=== PATIENT | female | born 1955 | race Caucasian/White ===

== ENCOUNTER 2019-04-07 08:48 | Inpatient (IN) ==
[2019-04-07] MEDS ORDERED: PHENERGAN IV PRN (08:55)
[2019-04-07] MEDS ORDERED: SODIUM CHLORIDE 0.9% INJ SCH (09:00)
--- NOTE | 2019-04-07 10:55 | EKG Report ---
Test Performed on : 04/07/2019 10:51:09 AM Test Reason : chest pain Blood Pressure : / mmHG Vent. Rate : 093 BPM Atrial Rate : 093 BPM P-R Int : 166 ms QRS Dur : 080 ms QT Int : 364 ms P-R-T Axes : 032 022 019 degrees QTc Int : 452 ms Normal sinus rhythm. Nonspecific ST and T wave abnormality Abnormal ECG When compared with ECG of 25-FEB-2015 13:23, Criteria for Inferior infarct are no longer present T wave inversion no longer evident in Inferior leads Nonspecific T wave abnormality now evident in Anterior leads Nonspecific T wave abnormality has replaced inverted T waves in Lateral leads QT has shortened Confirmed by Steve NAVARRO, James Plunkett ([id number]) on 04/07/2019 5:58:36 PM
[2019-04-07] MEDS: NS 1,000 ML IV SCH (14:21)
[2019-04-07] MEDS: SOLU-MEDROL IV SCH ×2 (14:22→16:32)
[2019-04-07] MEDS: PROTONIX IV SCH (14:22)
[2019-04-07] MEDS: LEVAQUIN 500 MG/D5W 500 MG/100 ML IVPB IV SCH (14:22)
[2019-04-07] MEDS ORDERED: TORADOL IV ONE (21:39)
[2019-04-07 21:57] LABS: BILIRUBIN URINE NEGATIVE (NEGATIVE); BLOOD URINE NEGATIVE (NEGATIVE); COLOR YELLOW; GLUCOSE URINE >1000 mg/dL (NEGATIVE); KETONE URINE NEGATIVE (NEGATIVE); LEUKOCYTES URINE NEGATIVE (NEGATIVE); NITRITE URINE NEGATIVE (NEGATIVE); PH URINE 5.5; PROTEIN URINE NEGATIVE (NEGATIVE); SP GRAVITY URINE 1.026; TURBIDITY URINE CLEAR (CLEAR); URINE SOURCE CLEAN CATCH; UROBILINOGEN URINE NORMAL (NORMAL)
[2019-04-07 21:58] LABS: UR EPITHELIAL CELLS <10 /HPF (<10); URINE BACTERIA NEGATIVE /HPF; URINE RBC <10 /HPF (<10); URINE WBC <10 /HPF (<10)
--- NOTE | 2019-04-07 22:45 | HISTORY AND PHYSICAL ---
CHIEF COMPLAINT: Cough, shortness of breath, wheezing. HISTORY OF PRESENT ILLNESS: She is a 64-year-old white female came [facility], a patient of mine, yesterday was treated with URI symptoms and bronchitis, sent home. Came back with not able to breathe, a little bit hypoxic, wheezing, some atypical chest pains, and since she failed outpatient treatment, admitted to the hospital for acute asthmatic bronchitis. Chest x-ray stable, no infiltrates. She has stable left lower lobe granuloma. PAST MEDICAL HISTORY: Allergic rhinitis, type 2 diabetes, hyperlipidemia, hypertension, hypothyroid, osteoporosis. PAST SURGICAL HISTORY: Benign breast biopsy, appendectomy, hysterectomy, left heel spur removal, bilateral hip replacement. MEDICATIONS: Synthroid 75 mcg daily, simvastatin 20 mg daily, Tenormin 50 p.o. b.i.d., metformin 850 daily, amitriptyline 25 at bedtime, Flonase 1 spray in each nostril daily, aspirin, alendronate 70 mg every week, Lasix 20 p.o. b.i.d., glipizide 10 mg p.o. b.i.d., B12 1000 mcg daily, tramadol 50 p.o. b.i.d. ALLERGIES: Reported to penicillin. SOCIAL HISTORY: for 44 years, 2 children. Lives in [place]. No smoking. No alcohol. No drug abuse. FAMILY HISTORY: Father at the age of 84 with heart problems. Mom of skin cancer with melanoma. HEALTH MAINTENANCE: Flu vaccine April 2018. Pneumococcal-13 vaccine 2016. Mammography 05/31/2018. DEXA scan June 2017. Eye exam 2018 in [place]. Colonoscopy [address] Aguiar. The patient was given recently outpatient antibiotics. REVIEW OF SYSTEMS: HEENT: Sinus headache, postnasal drainage, cough. No ear pain. No sore throat. Neck: No neck pain. No goiter. No lymphadenopathy. Cardiopulmonary: No chest pain. Shortness of breath. No PND. No orthopnea. Gastrointestinal: No nausea, vomiting, abdominal pain. Genitourinary: No history of dysuria, hesitancy, frequency. No swelling of legs. No joint pain. Neurologic: No focal deficits. PHYSICAL EXAMINATION: VITAL SIGNS: Temperature is 98.7 degrees, pulse 79, blood pressure 134/59. HEENT: Atraumatic, normocephalic. Pupils equal, react to light. TMs are normal. Nose and throat within normal limits. NECK: Supple. No lymphadenopathy. No goiter. CHEST: Bilateral wheezing. HEART: Sounds are regular. ABDOMEN: Belly is soft, nontender. Good bowel sounds. EXTREMITIES: No peripheral edema, cyanosis. NEUROLOGIC: No obvious neurological deficits. INVESTIGATIONS: EKG: Normal sinus, nothing acute. Chest x-ray in my office, no infiltrate, a stable left lower lobe granuloma. Labs are pending. ASSESSMENT AND PLAN: 1. A 64-year-old white female admitted to the hospital with acute asthma exacerbation with allergic rhinitis. Plan is IV steroids, IV Levaquin, bronchodilators. 2. Gastrointestinal prophylaxis with IV Protonix. Continue IV fluids. 3. Follow up on the pending labs and reconcile home medications. cc: Jose Guadalupe Skaggs MD
[2019-04-08] MEDS: SOLU-MEDROL IV SCH ×2 (01:13→10:38)
[2019-04-08] MEDS: NS 1,000 ML IV SCH ×2 (03:50→16:38)
[2019-04-08] MEDS: HUMULIN R SUBQ SCH ×4 (06:49→22:02)
[2019-04-08 07:30] LABS: CK INDEX 4.2 (0.0-2.5); CK-MB 11.31 ng/mL (0.0-5.0)
--- NOTE | 2019-04-08 07:51 | EKG Report ---
Test Performed on : 04/08/2019 07:33:30 AM Test Reason : chest pain Blood Pressure : / mmHG Vent. Rate : 065 BPM Atrial Rate : 065 BPM P-R Int : 150 ms QRS Dur : 078 ms QT Int : 430 ms P-R-T Axes : 033 043 049 degrees QTc Int : 447 ms Normal sinus rhythm. Normal ECG When compared with ECG of 07-APR-2019 10:51, Nonspecific T wave abnormality no longer evident in Lateral leads Confirmed by Steve NAVARRO, James Plunkett ([id number]) on 04/08/2019 1:54:05 PM
[2019-04-08 08:28] LABS: MAGNESIUM 1.7 mg/dL (1.5-2.7); PHOSPHORUS 3.4 mg/dL (2.7-4.5)
[2019-04-08 08:43] LABS: HEMATOCRIT 32.1 % (37.0-47.0); HEMOGLOBIN 10.6 g/dL (12.0-16.0); IMM GRAN# 0.02 X1000 (0.0-0.04); IMM GRAN% 0.2 % (0.0-0.5); LYMPH# 0.81 X1000 (1.2-3.4); LYMPH% 6.9 % (20.5-51.1); MCH 30.5 PG (27-31); MCV 92.2 FL (81-99); MONO# 0.21 X1000 (0.11-0.59); MONO% 1.8 % (1.7-9.3); MPV 11.7 FL (7.4-10.4); NEUT# 10.64 X1000 (1.4-6.5); NEUT% 91.1 % (42.2-75.2); PLT 128 X1000 (130-400); RBC 3.48 XMIL (4.2-5.4); WBC 11.68 X1000 (4.8-10.8)
[2019-04-08 08:55] LABS: CALCIUM 8.2 mg/dL (8.8-10.2); CREATININE 1.4 mg/dL (0.5-0.9); HEMOGLOBIN A1C 7.8 % (4.8-6.0); POTASSIUM 4.9 mmol/L (3.5-5.1)
--- NOTE | 2019-04-08 08:59 | Diag Imaging Result Doc PS360 ---
EXAM: CHEST-2 VIEWS 04/08/2019 HISTORY: hypoxia TECHNIQUE: PA and lateral chest COMMENT: There is a partially calcified nodule present probably in the left lower lobe although it is not well seen on the lateral view. There is also apparent platelike atelectasis in the left lower lobe. This was not the case on 02/25/2015. IMPRESSION: Left lower lobe atelectasis. Electronically signed by Giorgi Rae 04/08/2019 8:56 AM
[2019-04-08 09:33] LABS: BANDS 2 % (0-1); LYMPHS 6 % (21-51); MONO 2 % (1-9); SEGS 90 % (42-75)
[2019-04-08] MEDS: LEVAQUIN 500 MG/D5W 500 MG/100 ML IVPB IV SCH (10:10)
[2019-04-08] MEDS: PROTONIX IV SCH (10:10)
[2019-04-08] MEDS: SYNTHROID PO SCH (10:12)
[2019-04-08] MEDS: GLUCOPHAGE PO SCH (10:12)
[2019-04-08] MEDS: TENORMIN PO SCH ×2 (10:13→21:59)
[2019-04-08] MEDS: MORPHINE IV PRN ×3 (11:02→23:46)
[2019-04-08] MEDS: ASPIRIN PO SCH (11:04)
[2019-04-08] MEDS: DUONEB (A & A) INH PRN ×2 (11:13→22:16)
--- NOTE | 2019-04-08 13:14 | ECHO REPORT ---
ORDER DATE: 04/08/2019 INDICATIONS: Embolism. FINDINGS: 1. The right atrium appears normal in size at 2.6 cm. 2. Mild tricuspid regurgitation. Somewhat insufficient data to estimate the RV systolic pressure. 3. Normal RV size and systolic function. 4. No significant pulmonic insufficiency. 5. Normal left atrial size. 6. No mitral valve prolapse. Mild and at sometimes moderate appearing mitral regurgitation. This is a somewhat difficult study with multiple jets of mitral regurgitation identified. There does not appear to be any significant degree of mitral stenosis. 7. Normal LV size with an end-diastolic dimension of 4.3 cm. No clear evidence of left ventricular hypertrophy. Normal LV systolic function with an estimated EF of 65% on all axis views. 8. Aortic valve opens well. It is trileaflet. The valve is sclerotic, but does not appear to be stenotic. There is no aortic insufficiency. 9. Aorta appears normal on visualized segments. 10. No pericardial effusion seen. cc: MD Jose Guadalupe Winston MD
[2019-04-08] MEDS ORDERED: LEXISCAN ONE (14:42)
[2019-04-08 17:41] LABS: CK INDEX 4.7 (0.0-2.5); CK-MB 21.17 ng/mL (0.0-5.0)
--- NOTE | 2019-04-08 18:04 | Diag Imaging Result Document ---
PROCEDURE NAME: MYOCARDIAL PERF SCAN, STR/REST - 04/08/2019 INDICATION FOR PROCEDURE: Chest pain. PROCEDURES PERFORMED: 1. Lexiscan stress number. 2. One-day stress rest myocardial perfusion imaging FINDINGS: LEXISCAN STRESS RESULTS.: 1. Baseline EKG shows sinus rhythm. 2. Lexiscan stress does not demonstrate any clear evidence of ischemic-related EKG changes or significant arrhythmias. PERFUSION IMAGING RESULTS: 1. No evidence of abnormal extracardiac uptake. 2. TID ratio is 1.27. On review of splash images, there is slight suggestion of transient ischemic dilatation. 3. Perfusion imaging demonstrates a moderate sized, pfic-xa-aeeribgf intensity, reversible defect located in the apical, septal apical and mid anterior septal. This defect is reversible, suggesting ischemia, likely in the LAD territory. 4. Normal ejection fraction of 88%. The end-diastolic volume is 65, end-systolic volume is 8. There is some evidence of a distal septal wall motion abnormality on stress and gating. cc: MD Della Winston PA
--- NOTE | 2019-04-08 20:39 | CARDIOLOGY PROGRESS NOTE ---
DATE: 04/08/2019 SUBJECTIVE: The patient continues without chest discomfort or shortness of breath. OBJECTIVE: Blood pressure 125/55, heart rate 73, oxygen saturation 99% on room air. Chest is clear to auscultation. Cardiac exam reveals a regular rate and rhythm without appreciable murmur or gallop. There is no evidence of peripheral edema. DIAGNOSTIC DATA: Lexiscan sestamibi study demonstrates medium-size reversible defect in the mid to apical anteroseptal region suggesting inducible myocardial ischemia in distribution of more distal part of the left anterior descending coronary. Normal left ventricular systolic function demonstrated. IMPRESSION: 1. Recurrent chest discomfort. Symptoms mixed in nature but not totally incompatible with angina. 2. Abnormal Lexiscan sestamibi study suggesting inducible myocardial ischemia in distribution of more distal part of left anterior descending coronary. 3. Type 2 diabetes mellitus. 4. Hyperlipidemia. 5. Hypertension. RECOMMENDATIONS: 1. Continue aspirin p.o. daily along with beta-jose cruz. 2. Check fasting lipids and consider more potent statin if indicated. 3. Given symptoms, coronary risk profile and abnormal Lexiscan sestamibi study, favor definitive evaluation with cardiac catheterization and selective coronary angiography. This was discussed with the patient, including potential hazards of procedure as well as potential need to transfer to [facility] should she need a coronary angioplasty/stent procedure. She very much is in agreement with pursuing the procedure here at [facility]. We will therefore keep the patient in the hospital over the weekend and arrange cardiac catheterization procedure for Thursday. cc: MD Jose Guadalupe Campoverde MD
--- NOTE | 2019-04-08 21:07 | CONSULTATION ---
DATE OF CONSULTATION: 04/08/2019 IMPRESSION: 1. Episodic chest discomfort with mixed features for possible myocardial ischemia. Overall, clinical presentation more atypical for myocardial ischemia. Troponin normal. CPK mildly elevated. Electrocardiogram normal. 2. Recent cough, possibly related to bronchitis. 3. Type 2 diabetes mellitus. 4. Hypertension. 5. Chronic back disorder. Patient previously on tramadol, which was stopped 2 weeks ago. RECOMMENDATIONS: 1. Lexiscan sestamibi study. 2. Echocardiography. 3. Further recommendations to follow. HISTORY: This 64-year-old white female, with past history of type 2 diabetes mellitus, hyperlipidemia, and hypertension, was admitted because of chest discomfort and cough, with features predominantly typical for myocardial ischemia. CPK was mildly elevated as was CPK and MB; however, troponin T was normal. She is not aware of any previous cardiac problems. She has a chronic back problem and relates that tramadol was stopped 2 weeks ago. She was also taken off amlodipine and Lasix at that time. She has had some recent cough and mild chest tightness. She has also had some pain in the center of the back. She was noted to have some wheezing and, for this reason, was admitted for further management for asthmatic bronchitis because she had already been treated for this as an outpatient. She relates somewhat positional in nature to her chest discomfort. Discomfort does not seem to be pleuritic. PAST MEDICAL HISTORY: 1. Type 2 diabetes mellitus. 2. Hyperlipidemia. 3. Hypertension. 4. Hypothyroidism. 5. Osteoporosis. 6. Allergic rhinitis. PAST SURGICAL HISTORY: Includes: 1. Breast biopsy, which proved benign. 2. Appendectomy. 3. Hysterectomy. 4. Removal left heel spur. 5. Bilateral hip replacement. ALLERGIES: She is allergic or intolerant to penicillin. MEDICATIONS PRIOR TO ADMISSION: As listed. SOCIAL HISTORY: She is . She has never smoked. She does not use alcohol. FAMILY HISTORY: Negative for premature coronary disease. REVIEW OF SYSTEMS: Pulmonary: Noncontributory beyond History of Present Illness. Gastrointestinal: Noncontributory beyond History of Present Illness. Constitutional: Noncontributory beyond History of Present Illness. Remainder of review of systems negative/noncontributory beyond History of Present Illness with 14 total systems reviewed. PHYSICAL EXAMINATION: General: This is an older white female in no distress. Vital Signs: Blood pressure 130/60. Heart rate 80 and regular. HEENT: Extraocular movements intact. Mucous membranes moist. Neck: Supple without jugular venous distention. There are no carotid bruits. Chest: Clear to auscultation bilaterally. Cardiac: Regular rate and rhythm without appreciable murmur or gallop. Abdomen: Soft. Bowel sounds are normal. Extremities: Without edema. Neurologic: Alert and fully oriented. Speech is fluent. She moves all 4 extremities equally well. Skin: Warm, dry. Psychiatric: Reveals her mood to be appropriate. PERTINENT DATA: A 12-lead EKG demonstrates sinus rhythm and is within normal limits. Laboratory data includes a sodium of 134, potassium 4.9, chloride 102, carbon dioxide 16, BUN 47, creatinine 1.4, glucose 177. CPK 272, CPK MB 11.3, CPK-MB index 4.2, troponin T less than 0.01. Pro-B natriuretic peptide level 2011. White blood cell count 11.68, hematocrit 32.1, hemoglobin 10.6, platelet count 128,000. Chest x-ray reports left lower lobe atelectasis, but no other abnormalities. cc: MD Jose Guadalupe Campoverde MD
[2019-04-08] MEDS: ZOCOR PO SCH (21:59)
[2019-04-08] MEDS: ELAVIL PO SCH (21:59)
--- NOTE | 2019-04-08 22:47 | PROGRESS NOTE ---
DATE: 04/08/2019 SUBJECTIVE: Since admission, patient complains of chest pain going to the back. EKG, nondiagnostic. CK-MB index, positive. Troponin was negative. Chest x-ray was stable. It looks like more cardiac to me. Repeat EKG, stable. Currently pain free. OBJECTIVE: Temperature is 98.2 degrees, pulse 73. Vitals are stable.HEENT: Within normal limits. Neck: Supple. Chest: Decreased wheezing. Heart sounds are regular. Belly is soft, nontender. No obvious neurological deficits. INVESTIGATIONS: CBC: White cell count 11, hematocrit 32, platelets 128,000. D-dimer is 0.56, which is normal adjusted for her age. Sodium 134, potassium 4.9, chloride 102, BUN 47, creatinine 1.4, glucose 357. A1c 7.8. CK-MB index positive. Troponin was negative. ProBNP was slightly high. Chest x-ray was stable. ASSESSMENT AND PLAN: 1. Asthmatic bronchitis, coughing. I would decrease IV steroids 40 mg daily. Continue beta 2 agonist and IV antibiotics. 2. Azotemia. Continue IV fluids. 3. Chest pain. Positive CK-MB index in light of risk factors. Continue aspirin, beta blockers, morphine for pain. Cardiology consult on-call and follow up on echocardiography. 4. Hyperlipidemia. On Zocor. 5. Chronic insomnia. On Elavil. 6. Diabetes. Worsening due to steroids. Continue on metformin and subcutaneous sliding scale with insulin coverage. The patient has been scheduled for a stress test. LEVEL OF DOCUMENTATION: 35 minutes. cc: Jose Guadalupe Skaggs MD
[2019-04-09] MEDS: NS 1,000 ML IV SCH ×2 (04:46→20:34)
[2019-04-09] MEDS: MORPHINE IV PRN ×3 (04:46→20:37)
[2019-04-09 05:27] LABS: BASO# 0.01 X1000 (0.0-0.2); BASO% 0.1 % (0.0-0.8); IMM GRAN# 0.06 X1000 (0.0-0.04); IMM GRAN% 0.5 % (0.0-0.5); LYMPH# 0.74 X1000 (1.2-3.4); LYMPH% 6.2 % (20.5-51.1); MCH 29.8 PG (27-31); MCHC 32.3 g/dL (33-37); MCV 92.3 FL (81-99); MONO# 0.47 X1000 (0.11-0.59); MPV 11.7 FL (7.4-10.4); NEUT# 10.59 X1000 (1.4-6.5); NEUT% 89.2 % (42.2-75.2); PLT 142 X1000 (130-400); RBC 3.36 XMIL (4.2-5.4); RDW 13.3 % (11.5-14.5); WBC 11.87 X1000 (4.8-10.8)
[2019-04-09 06:04] LABS: MAGNESIUM 1.7 mg/dL (1.5-2.7); PHOSPHORUS 3.7 mg/dL (2.7-4.5)
[2019-04-09 06:06] LABS: CREATININE 1.6 mg/dL (0.5-0.9); POTASSIUM 4.7 mmol/L (3.5-5.1)
[2019-04-09] MEDS: HUMULIN R SUBQ SCH ×4 (06:28→20:35)
[2019-04-09 07:03] LABS: CHOLESTEROL 128 mg/dL (0-200); HDL 44 mg/dL (45-65); LDL 55 mg/dL; TRIGLYCERIDES 143 mg/dL (35-135); VLDL 29 mg/dL
[2019-04-09 07:50] LABS: BANDS 2 % (0-1); LYMPHS 6 % (21-51); MONO 2 % (1-9); SEGS 90 % (42-75)
--- NOTE | 2019-04-09 08:43 | Diag Imaging Result Doc PS360 ---
EXAM: CHEST-2 VIEWS INDICATION: hypoxia TECHNIQUE: 2 views COMPARISON: 04/08/2019 FINDINGS: Inspiration is suboptimal. Lung volumes are slightly lower than the previous study. Subsegmental atelectasis at the left lung base is approximately stable. No new consolidation is identified. Cardiac silhouette is stable. IMPRESSION: Lower lung volumes but grossly stable chest, otherwise. Electronically signed by Rasta Malave 04/09/2019 8:41 AM
[2019-04-09] MEDS: TENORMIN PO SCH ×2 (09:26→20:35)
[2019-04-09] MEDS: ASPIRIN PO SCH (09:26)
[2019-04-09] MEDS: SYNTHROID PO SCH (09:26)
[2019-04-09] MEDS: SOLU-MEDROL IV SCH (09:27)
[2019-04-09] MEDS: PROTONIX IV SCH (09:28)
[2019-04-09] MEDS: LEVAQUIN 500 MG/D5W 500 MG/100 ML IVPB IV SCH (09:28)
[2019-04-09] MEDS: GLUCOPHAGE PO SCH (09:51)
[2019-04-09] MEDS ORDERED: MIRALAX PO PRN (10:41)
[2019-04-09] MEDS: DUONEB (A & A) INH PRN ×2 (10:54→16:26)
--- NOTE | 2019-04-09 11:45 | PROGRESS NOTE ---
DATE: 04/09/2019 SUBJECTIVE: Patient is stable. No chest pain. Mild nonproductive cough. OBJECTIVE: Afebrile, pulse 73, respirations 15, blood pressure 122/66, O2 saturation room air is 97%. CV: RRR without distinct murmur. Lungs clear. Abdomen soft active bowel sounds. Nontender. One bowel movement in the past few days. Extremities: No calf tenderness, cords or edema. Neuro: Cranial nerves are intact. No focal deficits. LABORATORY DATA: Sodium 141, potassium 4.7, chloride 108, CO2 of 16, BUN 49, creatinine 1.6, triglycerides 143, total cholesterol 128, ALDL 55, VLDL 29, HDL 44. White count 11.8, hemoglobin 10, platelets 142,000. Chest x-ray this morning reveals low lung volumes with grossly stable chest with some left lung subsegmental atelectasis. No new consolidation. ASSESSMENT: 1. Chest pain with abnormal nuclear stress testing. Schedule for cardiac cath in 2 days here at [facility]. 2. Bronchitis. 3. Azotemia. 4. Hyperlipidemia, stable on Zocor. 5. Type 2 diabetes mellitus. 6. Chronic insomnia. 7. Hypothyroidism. PLAN: Continue aspirin daily. Continue atenolol. She is on low-dose metformin and she is on steroids p.r.n. nebulizer treatments, IV antibiotics in the form of Levaquin. Continue Zocor. We will add MiraLAX p.r.n. constipation. Continue nighttime Elavil. Continue her Synthroid. She has SSI if required for elevated blood sugars especially in light of her steroid administration. cc: MD Jose Guadalupe Orellana MD
[2019-04-09] MEDS: ZOCOR PO SCH (20:34)
[2019-04-09] MEDS: ELAVIL PO SCH (20:35)
[2019-04-10] MEDS: HUMULIN R SUBQ SCH ×4 (05:59→21:25)
[2019-04-10 06:22] LABS: HEMATOCRIT 30.1 % (37.0-47.0); HEMOGLOBIN 9.7 g/dL (12.0-16.0); IMM GRAN# 0.04 X1000 (0.0-0.04); IMM GRAN% 0.7 % (0.0-0.5); LYMPH# 0.76 X1000 (1.2-3.4); LYMPH% 13.8 % (20.5-51.1); MCH 29.9 PG (27-31); MCHC 32.2 g/dL (33-37); MCV 92.9 FL (81-99); MONO# 0.38 X1000 (0.11-0.59); MONO% 6.9 % (1.7-9.3); MPV 11.3 FL (7.4-10.4); NEUT# 4.32 X1000 (1.4-6.5); NEUT% 78.6 % (42.2-75.2); PLT 117 X1000 (130-400); RBC 3.24 XMIL (4.2-5.4); RDW 13.4 % (11.5-14.5)
[2019-04-10 07:02] LABS: MAGNESIUM 1.7 mg/dL (1.5-2.7); PHOSPHORUS 2.2 mg/dL (2.7-4.5)
[2019-04-10 07:05] LABS: CREATININE 1.3 mg/dL (0.5-0.9); POTASSIUM 4.7 mmol/L (3.5-5.1)
[2019-04-10 07:10] LABS: CALCIUM 6.8 mg/dL (8.8-10.2)
[2019-04-10] MEDS: SOLU-MEDROL IV SCH (09:33)
[2019-04-10] MEDS: TENORMIN PO SCH ×2 (09:33→20:34)
[2019-04-10] MEDS: LEVAQUIN 500 MG/D5W 500 MG/100 ML IVPB IV SCH (09:33)
[2019-04-10] MEDS: SYNTHROID PO SCH (09:33)
[2019-04-10] MEDS: ASPIRIN PO SCH (09:33)
[2019-04-10] MEDS: NS 1,000 ML IV SCH ×2 (09:33→20:34)
[2019-04-10] MEDS: PROTONIX IV SCH (09:33)
[2019-04-10] MEDS: DUONEB (A & A) INH PRN (10:35)
--- NOTE | 2019-04-10 10:54 | Diag Imaging Result Doc PS360 ---
EXAM: CHEST-2 VIEWS INDICATION: hypoxia TECHNIQUE: 2 views COMPARISON: 04/09/2019 FINDINGS: Left basilar atelectasis is approximately stable. No new consolidation is identified. Cardiac silhouette is stable. IMPRESSION: Stable chest. Electronically signed by Rasta Malave 04/10/2019 10:52 AM
[2019-04-10] MEDS: MORPHINE IV PRN ×2 (11:42→20:40)
[2019-04-10] MEDS ORDERED: DULCOLAX PR PRN (11:51)
--- NOTE | 2019-04-10 12:16 | PROGRESS NOTE ---
DATE: 04/10/2019 SUBJECTIVE: Patient says cough has improved. She is less sore related to the coughing. She still has not had a good bowel movement and desires a laxative for that. She has p.r.n. MiraLAX ordered. OBJECTIVE: Afebrile, pulse 81, respirations 18, blood pressure 129/74, O2 saturation on room air of 98%. CV: RRR. Lungs: Clear. Abdomen: Soft, nontender, nondistended. Extremities: No calf tenderness, cords, or edema. Neurologic: Cranial nerves are intact. No focal deficits. Chest x-ray today shows left basilar atelectasis, otherwise negative. Sodium 143, potassium 4.7, chloride 115, CO2 is 17, BUN 43, creatinine 1.3, blood sugars 95 to 268, calcium 6.8, phosphorus 2.2, magnesium 1.7. White count 5.5, hemoglobin 9.7, platelets 117,000. ASSESSMENT: 1. Chest pain with abnormal nuclear stress testing. Schedule for cardiac catheterization tomorrow. 2. Bronchitis, improving, with some left basilar atelectasis. 3. Azotemia. 4. Hyperlipidemia. 5. Type 2 diabetes mellitus. 6. Chronic insomnia. 7. Hypothyroidism. 8. Hypocalcemia. 9. Hypophosphatemia. PLAN: Give skim milk for phosphorus and we will give Tums for the calcium. Continue other care to include albuterol nebulizer treatments, low-dose steroids. We will add Dulcolax suppository for constipation p.r.n. as well. cc: MD Jose Guadalupe Orellana MD
[2019-04-10] MEDS: TUMS EXTRA STRENGTH PO SCH ×2 (14:11→20:35)
[2019-04-10] MEDS: ELAVIL PO SCH (20:34)
[2019-04-10] MEDS: ZOCOR PO SCH (20:35)
[2019-04-11] MEDS: HUMULIN R SUBQ SCH ×4 (06:32→22:02)
[2019-04-11] MEDS ORDERED: SODIUM BICARBONATE 8.4% 150 MEQ in STERILE WATER INJ. 1,000 ML IV SCH (07:15)
--- NOTE | 2019-04-11 07:38 | EKG Report ---
Test Performed on : 04/11/2019 07:03:16 AM Test Reason : pre op cath Blood Pressure : / mmHG Vent. Rate : 064 BPM Atrial Rate : 064 BPM P-R Int : 140 ms QRS Dur : 078 ms QT Int : 408 ms P-R-T Axes : 029 030 043 degrees QTc Int : 420 ms Normal sinus rhythm. Normal ECG When compared with ECG of 08-APR-2019 07:33, No significant change was found Confirmed by Steve NAVARRO, James Plunkett ([id number]) on 04/13/2019 9:37:32 PM
[2019-04-11] MEDS: PROTONIX IV SCH (08:01)
[2019-04-11] MEDS: SOLU-MEDROL IV SCH (08:01)
[2019-04-11] MEDS: SYNTHROID PO SCH (08:02)
[2019-04-11] MEDS: ASPIRIN PO SCH (08:02)
[2019-04-11] MEDS: TENORMIN PO SCH ×2 (08:02→22:02)
[2019-04-11] MEDS: TUMS EXTRA STRENGTH PO SCH ×2 (08:02→22:02)
[2019-04-11] MEDS ORDERED: CALCIUM GLUCONATE 1 GM in NS 50 ML IV ONE (08:04)
[2019-04-11] MEDS: MORPHINE IV PRN ×2 (08:08→20:17)
[2019-04-11] MEDS: MUCOMYST 20% PO SCH ×2 (08:36→22:01)
[2019-04-11] MEDS: DUONEB (A & A) INH PRN ×2 (08:36→19:36)
[2019-04-11 08:55] LABS: INR 1.17; PROTIME 15.1 Seconds (11.0-16.0)
[2019-04-11] MEDS ORDERED: XYLOCAINE 1% ONE (09:27)
[2019-04-11] MEDS ORDERED: HEPARIN 1000 UNITS/NS 2,000 UNIT/1,000 ML IV.SOLN ONE (09:27)
[2019-04-11] MEDS ORDERED: ANESTHESIA PB SET 88 IN 5742 ONE (09:54)
[2019-04-11] MEDS ORDERED: NS 250 ML ONE (09:54)
[2019-04-11] MEDS ORDERED: VERSED ONE (09:56)
[2019-04-11] MEDS ORDERED: DEMEROL ONE (09:56)
[2019-04-11] MEDS: NS 1,000 ML IV SCH (11:23)
[2019-04-11] MEDS: LEVAQUIN 500 MG/D5W 500 MG/100 ML IVPB IV SCH (11:23)
--- NOTE | 2019-04-11 11:23 | EKG Report ---
Test Performed on : 04/11/2019 11:16:44 AM Test Reason : post cath Blood Pressure : / mmHG Vent. Rate : 062 BPM Atrial Rate : 062 BPM P-R Int : 122 ms QRS Dur : 072 ms QT Int : 420 ms P-R-T Axes : 029 026 033 degrees QTc Int : 426 ms Normal sinus rhythm. Normal ECG When compared with ECG of 11-APR-2019 07:03, (Unconfirmed) No significant change was found Confirmed by Steve NAVARRO, James Plunkett ([id number]) on 04/13/2019 9:45:59 PM
--- NOTE | 2019-04-11 11:31 | CARDIAC CATH REPORT ---
DATE: 04/11/2019 PROCEDURES: 1. Left heart catheterization. 2. Selective bilateral coronary arteriography. 3. Left ventriculography. HISTORY: This is a 64-year-old female with diabetes, presenting with recurrent chest pain. The patient was evaluated by Dr. Leonidas Perez and Dr. Radha Skaggs, and they both recommended to proceed with invasive cardiac evaluation. The benefits, risks and complications were discussed. Because of renal insufficiency, a drip of bicarbonate was initiated, and also Mucomyst was given. The case was performed using Visipaque, and we gave her 1 mg of Versed and 25 mg of Demerol for sedation. DESCRIPTION OF PROCEDURE: The patient was brought to the cardiac collaborative teacher in a fasting state. The right antecubital fossa was prepped and draped in sterile fashion and anesthetized with lidocaine 1%. A 5-[place]izen [place] sheath was inserted into the right brachial artery by following the modified Seldinger technique. Using a 5-[place]izen [place] Sones type 1 catheter, the right coronary artery was selectively opacified. Thereafter, the left coronary artery was selectively opacified in multiple projections. Thereafter, the aortic valve was negotiated. Left ventriculogram was performed in 60 degree HEBREW projection and 30 degree GALVIN projection by hand injection. At the conclusion of the procedure, the sheath was flushed. Nitroglycerin intraarterial was given at the beginning of the case and also at the conclusion of the case. The sheath was removed. Hemostasis was accomplished with hand compression. The patient tolerated the procedure well. SUMMARY OF HEMODYNAMIC FINDINGS: Central aortic pressure is 151/78. Left ventricular pressure 140/18. Post LV gram 139/20. Final central aortic pressure is 137/67. SUMMARY OF ANGIOGRAPHIC FINDINGS: 1. Left main coronary artery. This vessel appears to be anatomically normal. 2. Left anterior descending coronary artery. This vessel appears to be normal proximally and then gives rise to a first diagonal branch, then immediately after the origin of the first septal branch and first diagonal branch, the LAD shows a 95% stenosis. Thereafter, the LAD becomes very small with a caliber of no more than 1.5 mm. There is an additional stenosis of about 70% to 80% after the first one. The apical LAD is very small. 3. Circumflex coronary artery. The circumflex coronary artery is a nondominant system. It gives rise to a tiny high lateral branch and a sinus jayy branch. Thereafter, it gives rise to a bifurcating, small size marginal vessel. That shows, in turn, a proximal 50% to 60% stenosis. Thereafter, the circumflex gives rise to an additional posterolateral marginal branch which is very small in caliber, about 1.5 mm, and then the terminal circumflex which is about 1.6 mm in caliber. The distal vessel appears to be free of any critical obstruction. 4. Right coronary artery. The right coronary artery is a relatively small, almost codominant vessel. It gives rise to conus branch. This vessel distally gives rise to the posterior descending branch which is medium size. This vessel proximally shows a 40% stenosis. The AV branch is rudimentary very small and is free of any obstruction. LEFT VENTRICULOGRAM: Left ventriculogram in the 60 degree HEBREW projection and 30 GALVIN projection reveals excellent left ventricular contractility. Ejection fraction is estimated at 60% to 65%. Question of hypokinesis of the apical septal segment. No mitral regurgitation is noted. SUMMARY: This study shows: 1. Severe coronary artery disease involving the relatively proximal portion of the LAD right after the origin of the first diagonal and first septal branch followed by an additional significant stenosis of 80%. The vessel at that level becomes really very small. There is mild plaque in the circumflex at the origin of the major lateral branch, and there is also a plaque at the origin of the posterior descending branch of the right coronary artery. 2. Preserved left ventricular systolic function. 3. Borderline elevation of LVEDP. 4. No mitral regurgitation. No aortic stenosis. RECOMMENDATIONS: The case has been discussed with Dr. Jonatan Wyatt from [facility]. He has looked at the films, and he believes that the LAD could be treated with a stent. We will continue at this time the bicarbonate drip, and we will transfer the patient to [place] for intervention first thing in the morning. The patient is stable at this time, and she understands and is agreeable to this course of action. cc: MD Jose Guadalupe Hoskins MD
[2019-04-11] MEDS ORDERED: HUMULIN R IV ONE (18:34)
[2019-04-11] MEDS: ZOCOR PO SCH (22:02)
[2019-04-11] MEDS: ELAVIL PO SCH (22:02)
[2019-04-12 06:07] LABS: EOS# 0.01 X1000 (0.0-0.7); EOS% 0.2 % (0.0-10.0); HEMATOCRIT 30.2 % (37.0-47.0); HEMOGLOBIN 9.9 g/dL (12.0-16.0); IMM GRAN% 1.8 % (0.0-0.5); LYMPH# 1.07 X1000 (1.2-3.4); MCH 29.6 PG (27-31); MCHC 32.8 g/dL (33-37); MCV 90.4 FL (81-99); MONO# 0.38 X1000 (0.11-0.59); MONO% 6.7 % (1.7-9.3); MPV 11.1 FL (7.4-10.4); NEUT# 4.08 X1000 (1.4-6.5); NEUT% 72.3 % (42.2-75.2); PLT 128 X1000 (130-400); RBC 3.34 XMIL (4.2-5.4); RDW 13.1 % (11.5-14.5); WBC 5.64 X1000 (4.8-10.8)
[2019-04-12] MEDS: HUMULIN R SUBQ SCH (06:08)
[2019-04-12 06:32] LABS: CREATININE 1.1 mg/dL (0.5-0.9); MAGNESIUM 1.8 mg/dL (1.5-2.7)
[2019-04-12 06:33] LABS: CALCIUM 8.2 mg/dL (8.8-10.2); CREATININE 1.1 mg/dL (0.5-0.9); POTASSIUM 4.9 mmol/L (3.5-5.1)
[2019-04-12 07:12] VITALS: BP 154/64
--- NOTE | 2019-04-12 07:33 | PROGRESS NOTE ---
DATE: 04/11/2019 SUBJECTIVE: Intermittent chest pain. Findings were discussed with the patient and . The patient was going for catheterization and Dr. Eli informed the patient has LAD lesions type 2. Going to [place] for PCI. Continue IV fluids. REVIEW OF SYSTEMS: None reported. PHYSICAL EXAM: Temperature 98.6 degrees, pulse is 85, blood pressure 129/65.HEENT: Within normal limits. Neck: Supple. No lymphadenopathy. No goiter. Chest: Bilateral air entry. Heart: Sounds are regular. Abdomen: Belly is soft, nontender. Good bowel sounds no. Neurologic: No neurological deficits. BUN 35, creatinine 1.0, glucose 396, calcium 6.8, LDL 55. ASSESSMENT AND PLAN: 1. Coronary artery disease with positive stress test, left heart catheterization, LAD lesions, going PCI in [place] tomorrow, pain-free. 2. Azotemia, better. 3. Elevated blood sugars. Discontinue steroids. Continue sliding scale with insulin coverage. Continue aspirin, beta blockers, morphine. LDL is less than 70. 4. Hypocalcemia. Replace the potassium. We will check the labs in the morning. LEVEL OF DOCUMENTATION: 25 minutes. cc: Jose Guadalupe Skaggs MD
--- NOTE | 2019-04-13 21:19 | DISCHARGE SUMMARY ---
ADMISSION DATE: 04/07/2019 DISCHARGE DATE: 04/12/2019 DISCHARGING DIAGNOSIS: Chest pain due to significant left anterior descending disease. SECONDARY DIAGNOSES: 1. Asthmatic bronchitis. 2. Allergic rhinitis. 3. Type 2 diabetes. 4. Hyperlipidemia. 5. Hypertension. 6. Hypothyroidism. 7. Osteoporosis. CONSULTATIONS: 1. Corey Eli MD 2. Leonidas Perez MD PROCEDURES: 1. Myocardial perfusion scan: Ejection fraction is normal. Moderate-sized reversible defects in the mid anterior septal defect. 2. Echocardiography report: Normal LV systolic function 65%. No significant valvular heart disease seen. No wall motion abnormalities. 3. Cardiac catheterization: Findings reported left main is normal, LAD normal proximally, 95% stenosis mid LAD after the first diagonal and there is another 1 down the line 70%. Circumflex artery 50% to 60% stenosis. Right coronary artery posterior descending that shows 40% stenosis. Normal LV systolic function. Preserved LV function. RADIOLOGY PROCEDURES: Chest x-ray: Left basilar atelectasis, stable granuloma. BRIEF HISTORY: Please see the H and P that was done on 04/07/2019. In brief she is a 64-year-old white female basically admitted to the hospital with cough, shortness of breath, and wheezing, initially treated for asthmatic bronchitis. Chest x-ray was stable. After admission, patient had some chest pain going to the back. EKG was unremarkable. In light of risk factors, we did a cardiac workup with above findings. CK MB index positive but negative troponin. Prior to the catheterization, the patient was slightly azotemic. IV fluids was given to prevent the contrast nephropathy. The patient was transferred to [facility] for PCI for LAD lesion. LABORATORY DATA: CBC: White cell count 5.6, hematocrit 30, platelets 128,000. Sodium 144, potassium 4.9, chloride 110, BUN 34, creatinine 1.1, glucose 120. calcium 8.2. Triglycerides 143, cholesterol 128, HDL 44, LDL 55. DISCHARGE INSTRUCTIONS: Synthroid 75 mg in the morning, simvastatin 20 daily, Tenormin 50 p.o. b.i.d., metformin 850 on hold, amitriptyline 25 at bedtime. Keep the A1c below 7, LDL less than 70. We will follow up after PCI from [facility]. cc: Jose Guadalupe Skaggs, MD Dr. Mark Rossi MD [facility]
== END 2019-04-12 07:40 | disposition short-term general hospital (02) | DRG 287 ==
LOC: DIRADM 08:48 → EDIPHOLD 10:32 → 3N 13:20 → 2N 04-08 23:35
PROVIDERS: ADMIT Internal Medicine; ATTEND Internal Medicine